=== PATIENT | female | born 1985 | race Caucasian/White ===

== ENCOUNTER 2021-01-18 14:42 | Outpatient (REF) | payer OTHER, SELFPAY ==
[2021-01-18 15:03] LABS: HCT 44.9 % (36.0-46.0); HGB 15.1 g/dL (11.2-15.7); MCH 30.6 pg (27.0-33.0); MCHC 33.6 % (32.0-36.0); MCV 91.1 fL (80-95); MPV 9.5 fL (8.0-11.0); Platelet Count 394 10^3/uL (130-400); RBC 4.93 10^6/uL (3.93-5.22); RDW 11.9 % (11.7-14.6); WBC 10.59 10^3/uL (4.4-10.8)
[2021-01-18 15:20] LABS: HCG Quant, Pregnancy 10 mIU/mL (1-3)
== END 2021-01-18 14:43 | disposition home or self-care (01) ==
LOC: NCHCN 14:42
PROVIDERS: PCP Nurse Practitioner Family; Visit Provider Nurse Practitioner Family
DX: N93.9 Abnormal uterine and vaginal bleeding, unspecified (principal)
CPT/HCPCS: 85027; 84702

== ENCOUNTER 2021-11-01 14:30 | Emergency (ER) | payer OTHER, MEDICAID, SELFPAY ==
[2021-11-01 14:33] VITALS: BP 135/96; PULSE 87; RESP 16; TEMP 37.3; O2SAT 97
--- NOTE | 2021-11-01 14:45 | DI.RAD_ITS ---
Exam(s) XR FOOT LT COMPLETE EXAM: XR FOOT LT COMPLETE CLINICAL HISTORY: PAIN 2ND MTP. TECHNIQUE: 2D digital imaging was performed. COMPARISON: No exams were available for comparison FINDINGS: Three views of the left foot reveal no evidence of fracture or diastasis of the Mary Alice nathan joint. No pes planus. Bone density normal. No osseous lesions. No radiopaque foreign body. IMPRESSION: No significant findings. DATA REPOSITORY: RADIATION DOSE DELIVERED:
--- NOTE | 2021-11-01 15:23 | DI.VRAD_ITS ---
PROCEDURE INFORMATION: Exam: XR Left Foot Exam date and time: 11/01/2021 2:49 PM Age: 36 years old Clinical indication: Other: Pain 2nd mtp TECHNIQUE: Imaging protocol: XR Left foot. Views: 3 or more views. COMPARISON: No relevant prior studies available. FINDINGS: Bones/joints: Normal. Soft tissues: Normal. IMPRESSION: No evidence for acute abnormality. Dictated and Authenticated by: Annalise Headley MD. Ordering:PREET Clinton MD
--- NOTE | 2021-11-01 15:31 | W.ED.GENAD ---
Discharge Plan Disposition Patient Disposition: HOME Condition: Stable Discharge Details Clinical Impression: Acute foot pain Primary Care Provider: Ariela Keenan ED Provider: Mary Beth Suárez Home Meds and New Rx's Prescriptions: Continued montelukast [Singulair] 10 mg Tablet 10 mg PO DAILY 0RF albuterol sulfate 90 mcg/actuation Hfa Aerosol Inhaler 2 puff INHALATION 6XD 0RF Discharge Instructions Instructions: Leg Pain (ED) Additional Instructions: Please follow-up with quantitative analyst developer Take ibuprofen and Tylenol as needed for pain control To return earlier should you have new or worsening complaints Your x-ray today did not show evidence of abnormality One of the differentials IS Osuna's neuroma, you may ask the quantitative analyst developer about thIS POSSIBILITY Referrals: Rock Baca DPM [[facility] STAFF PHYSICIAN] - Discharge Data Discharge Date/Time-TO BE ENTERED AT DEPARTURE: 11/01/21 15:43 Medical Decision Making X-ray does not show acute abnormality per virtual radiology interpretation in my review Placed in a boot for comfort and referred to podiatry in the outpatient setting Return discussed and patient expressed understanding Medical Records Medical records reviewed: Yes I reviewed the patient's medical records. HPI General Date/Time Provider Initiated Documentation: 11/01/21 14:48. HPI Narrative: This 36-year-old female presents with left foot pain. She states that the dog stepped on her foot approximately. Counter pain has worsened since that time. Is a prior injury. She states the pain is exacerbated with walking. Denies any additional complaints at this time. She had a prior injury. Related Data Home Medications Medication Instructions Recorded Confirmed albuterol sulfate 90 mcg/actuation 2 puff INHALATION 6XD 11/01/21 11/01/21 aerosol inhaler montelukast 10 mg tablet 10 mg PO DAILY 11/01/21 11/01/21 (Singulair) Allergies Allergy/AdvReac Type Severity Reaction Status Date / Time No Known Allergies Allergy Unverified 11/01/21 14:37 General Stated Complaint: Orthopedic JACOB: 4 Review of Systems Narrative: Review of systems obtained x3 and negative aside from indication in HPI PFSH All Active Problems (Updated 11/01/21 @ 15:35 by YANG Smith) Acute foot pain (Acute) Social History Smoking/Tobacco Use Status: Never Smoking risk assessment performed?: Yes Alcohol Intake: never Drug use: Never Substance use type: does not use Do you feel safe at home: Yes Do you feel safe in your relationship?: Yes Exam Extrem Other: Left foot with tenderness on plantar aspect MTP joint migraine second and fourth digit No visible sign of trauma, neurovascularly intact, no tenderness Course Vital Signs Vital signs: Vital Signs Temperature 37.3 C 11/01/21 14:33 Pulse 87 11/01/21 14:33 Respiratory Rate 16 11/01/21 14:33 Blood Pressure 135/96 H 11/01/21 14:33 Pulse Oximetry 97 11/01/21 14:33 Temperature 37.3 C 11/01/21 14:33 Temperature Source Temporal Artery Scan 11/01/21 14:33 Pulse 87 11/01/21 14:33 Respiratory Rate 16 11/01/21 14:33 Respiratory Effort Non-Labored 11/01/21 14:39 Blood Pressure 135/96 H 11/01/21 14:33 Blood Pressure Position Sitting 11/01/21 14:33 Pulse Oximetry 97 11/01/21 14:33 Oxygen Delivery Method Room Air 11/01/21 14:33 Oxygen Flow Rate 0 11/01/21 14:33 Pain Level 5 11/01/21 14:33 Lab/Test Results Lab/Test Results: POC- Test(urine) Negative
== END 2021-11-01 15:43 | disposition home or self-care (01) ==
PROVIDERS: Emergency Provider Physician Assistant; PCP Nurse Practitioner Family
DX: M79.672 Pain in left foot (principal); W54.8XXA Other contact with dog, initial encounter
CPT/HCPCS: 29515; 81025; 99283; 73630

== ENCOUNTER 2022-09-28 03:24 | Outpatient (CLI) | payer MEDICAID, SELFPAY ==
[2022-09-28 15:29] LABS: Abs Immature Grans 0.02 10^3/uL (0.0-0.06); Absolute Basophil Count 0.14 10^3/uL (0.0-0.2); Absolute Eosinophil Count 0.87 10^3/uL (0.0-0.7); Absolute Lymphocyte Count 2.76 10^3/uL (1.2-3.4); Absolute Monocyte Count 0.54 10^3/uL (0.1-0.8); Absolute Neutrophil Count 5.58 10^3/uL (1.2-6.7); Basophils % 1.4; Eosinophils % 8.8; HCT 41.2 % (36.0-46.0); HGB 13.4 g/dL (11.2-15.7); Immature Grans % 0.2; Lymphocytes % 27.9; MCH 29.8 pg (27.0-33.0); MCHC 32.5 % (32.0-36.0); MCV 92 fL (80-95); MPV 8.9 fL (8.0-11.0); Monocytes % 5.4; Neutrophils % 56.3; Platelet Count 320 10^3/uL (130-400); RBC 4.49 10^6/uL (3.93-5.22); RDW 11.9 % (11.7-14.6); RDW-SD 39.8 fL; WBC 9.91 10^3/uL (4.4-10.8)
[2022-09-30 08:34] LABS: IgE 2 IU/mL (<158)
== END 2022-09-28 03:25 | disposition home or self-care (01) ==
PROVIDERS: Visit Provider Internal Medicine Pulmonary Disease
DX: J45.909 Unspecified asthma, uncomplicated (principal)
CPT/HCPCS: 36415; 82785; 85025

== ENCOUNTER 2022-10-06 08:00 | Emergency (ER) | payer MEDICAID, SELFPAY ==
[2022-10-06 08:06] VITALS: BP 142/99; PULSE 107; RESP 18; TEMP 36.9; O2SAT 97
--- OUTSIDE RECORDS SUMMARY | 2022-10-06 08:07 | XMS_ITS | Continuity of Care Document ---
Author Name Unknown Organization [facility] Address [address] [place] [address] Encounter [facility]TT[facility] FIN [id number] [id number] Date(s): 06/11/22 - 06/11/22 [facility] [address], [place] [address] Encounter Diagnosis Asthma exacerbation(Discharge Diagnosis) - 06/11/22 Upper respiratory infection with cough and congestion(Discharge Diagnosis) - 06/11/22 Discharge Disposition: Home or Self Care Attending Physician: Casimiro Isaac MD Admitting Physician: Casimiro Isaac MD Allergies, Adverse Reactions, Alerts No Known Allergies Assessment and Plan Future Appointments Functional Status 06/11/22 Recent Travel History No recent travel Other exposure to Infectious Disease COV ID-19 Symptoms Present Medications albuterol 0 Refill(s) Start Date: 06/11/22 Status: Ordered predniSONE 20 mg oral tablet 40 mg = 2 tab, Oral, Daily, # 10 tab, 0 Refill(s), Pharmacy: [email or web address], 158, cm, 06/11/22 8:40:00 EDT, Height/Length Dosing, 65, kg, 06/11/22 8:40:00 EDT, Weight Dosing Start Date: 06/11/22 Stop Date: 06/16/22 Status: Ordered Singulair 0 Refill(s) Start Date: 06/11/22 Status: Ordered Results Laboratory List Name Date SARS-CoV-2 (Covid-19) AG ([facility]) POCT Most recent to oldest [Reference Range]: 1 SARS-CoV or CoV-2 (COVID-19) Ag ([facility]) [Negative] Negative (06/11/22 9:28 AM) 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 Unknown *NA* (06/11/22 9:28 AM) Date of onset (Lab) Unknown *NA* (06/11/22 9:28 AM) Hospitalized due to COVID-19? Unknown *NA* (06/11/22 9:28 AM) In ICU? Unknown *NA* (06/11/22 9:28 AM) Group care resident? Unknown *NA* (06/11/22 9:28 AM) status? Unknown *NA* (06/11/22 9:28 AM) Radiology Reports * Exam Date Time Procedure Performing Provider Status 06/11/22 9:21 AM XR Chest 2 Views Maryam Zhu; Auth (Verified) Notes: (XR Chest 2 Views) Reason For Exam: cough XR Chest 2 Views EXAM DESCRIPTION: XR Chest 2 Views 06/11/2022 INDICATION: COUGH TECHNIQUE: PA and lateral views of the chest. COMPARISON: 05/09/2021 FINDINGS: The lungs are well expanded and clear with no focal consolidation or pulmonary edema. The cardiomediastinal contour and pleural margins are within normal limits. IMPRESSION: No active chest disease. JOB #: [id number] Final Signed by: Héctor Roberson MD Signed (Electronic Signature): 06/11/2022 9:37 am Vital Signs Most recent to oldest [Reference Range]: 1 2 Temperature Temporal Artery [36-38 Deg C ] 36.7 Deg C (06/11/22 8:24 AM) Apical Heart Rate [60-100 bpm] 90 bpm (06/11/22 10:24 AM) Peripheral Pulse Rate [60-100 bpm] 93 bp m (06/11/22 8:24 AM) Respiratory Rate [12-24 br/min] 16 br/mi n (06/11/22 10:24 AM) 18 br/min (06/11/22 8:24 AM) Blood Pressure [90-140/60-90 mmHg] 138/9 1mmHg (06/11/22 8:24 AM) Weight Dosing 65.00 kg (06/11/22 8:40 AM) Weight Estimated 65.00 kg (06/11/22 8:24 AM) Height/Length Dosing 158.000 cm (06/11/22 8:40 AM) Height/Length Estimated 158.000 cm (06/11/22 8:24 AM) Social History Social History Type Response Tobacco Never tobacco user T obacco Use:. Sex XR Chest 2 Views * Héctor Roberson MD: VERIFY, VERIFY Event Display: Report EXAM DESCRIPTION: XR Chest 2 Views 06/11/2022 INDICATION: COUGH TECHNIQUE: PA and lateral views of the chest. COMPARISON: 05/09/2021 FINDINGS: The lungs are well expanded and clear with no focal consolidation or pulmonary edema. The cardiomediastinal contour and pleural margins are within normal limits. IMPRESSION: No active chest disease. JOB #: [id number] Final Signed by: Héctor Roberson MD Signed (Electronic Signature): 06/11/2022 9:37 am
--- OUTSIDE RECORDS SUMMARY | 2022-10-06 08:07 | XMS_ITS | Continuity of Care Document ---
Author Name Unknown Organization [facility] Address [address] [place] [address] Care Team Providers Care Letterpress Setter Name Role Phone Saundra De Paz MD Primary Care Physician [phone] Encounter [facility]_[place] FIN [id number] [id number] Date(s): 08/19/22 - 08/19/[address] [address]- Discharge Disposition: Home or Self Care Attending Physician: FITZ KERR Admitting Physician: FITZ KERR Referring Physician: JUAN MIMS Allergies, Adverse Reactions, Alerts No Known Allergies Medications albuterol 0 Refill(s) Start Date: 06/11/22 Status: Ordered Albuterol (Eqv-ProAir HFA) 90 mcg/inh inhalation aerosol 2 puffs, Inhale, every 6 hr, PRN cough, # 8.5 g, 0 Refill(s), Pharmacy: [facility], 157, cm, 06/25/22 8:40:00 EDT, Height/Length Dosing, 65.77, kg, 06/25/22 8:40:00 EDT, Weight Dosing Start Date: 06/25/22 Status: Ordered Flonase 50 mcg/inh nasal spray 1 sprays, Nasal, BID, # 9.9 mL, 0 Refill(s), Pharmacy: [facility], 157, cm, 06/25/22 8:40:00 EDT, Height/Length Dosing, 65.77, kg, 06/25/22 8:40:00 EDT, Weight Dosing Start Date: 06/25/22 Status: Ordered NuvaRing 0 Refill(s) Start Date: 06/25/22 Status: Ordered predniSONE 10 mg oral tablet See Instructions, 4 tabs for 3 days, 3 tabs for 3 days, 2 tabs for 3 days, 1 tab for 3 days. Stop, # 30 tab, 0 Refill(s), Pharmacy: [facility], 157, cm, 06/25/22 8:40:00 EDT, Height/Length Dosing, 65.77, kg, 06/25/22 8:40:00 EDT, Weight Dosing Start Date: 06/25/22 Status: Ordered Singulair 0 Refill(s) Start Date: 06/11/22 Status: Ordered Social History Social History Type Response Tobacco Never tobacco user T obacco Use:. Sex Patient Care team information Personnel Name: Saundra De Paz MD Address: Address: [address] [place] [address]
--- OUTSIDE RECORDS SUMMARY | 2022-10-06 08:07 | XMS_ITS | Continuity of Care Document ---
Author Name Unknown Organization [facility] Address [address] [place] [address] Care Team Providers Care Delivery Associate Name Role Phone Saundra De Paz MD Primary Care Physician [phone] Encounter [facility] NBR [id number] Date(s): 08/04/22 - 08/04/22 [facility] [address] [place] [address]- Encounter Diagnosis Asthma(Discharge Diagnosis) - 08/05/22 Discharge Disposition: Home or Self Care Attending Physician: Saundra De Paz MD Allergies, Adverse Reactions, Alerts No Known Allergies Assessment and Plan Future Appointments Functional Status 08/04/22 Other exposure to Infectious Disease Non e Medications albuterol 0 Refill(s) Start Date: 06/11/22 Status: Ordered Albuterol (Eqv-ProAir HFA) 90 mcg/inh inhalation aerosol 2 puffs, Inhale, every 6 hr, PRN cough, # 8.5 g, 0 Refill(s), Pharmacy: [facility], 157, cm, 06/25/22 8:40:00 EDT, Height/Length Dosing, 65.77, kg, 06/25/22 8:40:00 EDT, Weight Dosing Start Date: 06/25/22 Status: Ordered Flonase 50 mcg/inh nasal spray 1 sprays, Nasal, BID, # 9.9 mL, 0 Refill(s), Pharmacy: [facility], 157, cm, 06/25/22 8:40:00 EDT, Height/Length Dosing, 65.77, kg, 06/25/22 8:40:00 EDT, Weight Dosing Start Date: 06/25/22 Status: Ordered NuvaRing 0 Refill(s) Start Date: 06/25/22 Status: Ordered predniSONE 10 mg oral tablet See Instructions, 4 tabs for 3 days, 3 tabs for 3 days, 2 tabs for 3 days, 1 tab for 3 days. Stop, # 30 tab, 0 Refill(s), Pharmacy: [facility], 157, cm, 06/25/22 8:40:00 EDT, Height/Length Dosing, 65.77, kg, 06/25/22 8:40:00 EDT, Weight Dosing Start Date: 06/25/22 Status: Ordered Singulair 0 Refill(s) Start Date: 06/11/22 Status: Ordered Vital Signs Most recent to oldest [Reference Range]: 1 Temperature Tympanic [36.6-37.9 Deg C] 3 6.1 Deg C *LOW* (08/04/22 4:16 PM) Peripheral Pulse Rate [60-100 bpm] 99 bp m (08/04/22 4:16 PM) Blood Pressure [90-140/60-90 mmHg] 130/9 2mmHg (08/04/22 4:16 PM) Weight 67.5 kg (08/04/22 4:16 PM) Weight Measured (lbs) 148.812 lb (08/04/22 4:16 PM) Social History Social History Type Response Tobacco Never tobacco user T obacco Use:. Sex Physician Outpatient Note * Werner Earl, DO: PERFORM Event Display: Office Clinic Note Physician Authored Date: [id number] ALICIA SALINAS :1985 Age:37 years Sex:Female Visit Date:08/04/2022 Primary Care Physician: Saundra De Paz MD Chief Complaint Pt reports that she has been doing ok. She is stressed due to work. Pt needs a work note for the asthma History of Present Illness 37 y/o female following up for 2 ER visits for exacerbation of her asthma. Her breathing is better but sensitive to smells that make her short of breath. She would like a referral to a creative lead as well as an director enterprise sales. She needs a letter for work because she has missed so many days. She does not check he peak flows. Review of Systems Constitutional: No fevers, chills, sweats Eye: No recent visual problems ENT: No ear pain, nasal congestion, sore throat Respiratory: No shortness of breath, cough Cardiovascular: No Chest pain, palpitations, syncope Integumentary: No rash, pruritus, abrasions Neurologic: Alert & oriented X 4 Psychiatric: No anxiety, depression Physical Exam Vitals & Measurements T:??36.1?C ??(Tympanic)?? HR:??99??(Peripheral)?? BP:??130/92?? SpO2:??98%?? WT:??67.5??kg?? General: Alert and oriented, well nourished, no acute distress. Lungs: Clear to auscultation and percussion, non-labored respiration. Heart: Normal rate, regular rhythm, no murmur, gallop or edema. Skin: Skin is warm, dry and appropriate for ethnicity, no rashes or lesions. Neurologic: Awake, alert and oriented X4, CN II-XII intact. Psychiatric: Cooperative, appropriate mood and affect. ? Assessment/Plan Asthma??J45.909 1. Asthma ? Letter for work ? Refer to [employer] ? Refer to Line Walker ? Given peak flow meter and advised to know what her normal values are ? Taught pt to do diaphragmatic doming Follow up PRN ?? Pt agrees with plan ? Problem List/Past Medical History Ongoing No qualifying data Historical No qualifying data Medications albuterol Albuterol (Eqv-ProAir HFA) 90 mcg/inh inhalation aerosol, 2 puffs, Inhale, every 6 hr, PRN Flonase 50 mcg/inh nasal spray, 1 sprays, Nasal, BID NuvaRing predniSONE 10 mg oral tablet, See Instructions Singulair Allergies No Known Allergies No Known Medication Allergies Social History Electronic Cigarette/Vaping Electronic Cigarette Use: Never. Tobacco Never tobacco user Tobacco Use:. Electronically Signed on 08/05/22 06:02 AM Wenrer Brazalovich, DO Patient Care team information Personnel Name: Saundra De Paz MD Address: Address: [address] [place] [id number]
--- OUTSIDE RECORDS SUMMARY | 2022-10-06 08:07 | XMS_ITS | Continuity of Care Document ---
Author Name Unknown Organization [facility] Address [address] [place] [address] Encounter [facility] FIN NBR [id number] Date(s): 06/25/22 - 06/25/22 [facility] [address], [place] [address] Encounter Diagnosis Asthma exacerbation(Discharge Diagnosis) - 06/25/22 Chronic rhinitis(Discharge Diagnosis) - 06/25/22 Viral URI(Discharge Diagnosis) - 06/25/22 Discharge Disposition: Home or Self Care Attending Physician: Rodo Bernal MD Admitting Physician: Rodo Bernal MD Allergies, Adverse Reactions, Alerts No Known Medication Allergies Assessment and Plan Future Appointments Diagnostic Tests Pending * Strep Confirmation 06/25/22 Functional Status 06/25/22 Other exposure to Infectious Disease COV ID-19 Symptoms Present Medications albuterol 0 Refill(s) Start Date: 06/11/22 Status: Ordered Albuterol (Eqv-ProAir HFA) 90 mcg/inh inhalation aerosol 2 puffs, Inhale, every 6 hr, PRN cough, # 8.5 g, 0 Refill(s), Pharmacy: [id number], 157, cm, 06/25/22 8:40:00 EDT, Height/Length Dosing, 65.77, kg, 06/25/22 8:40:00 EDT, Weight Dosing Start Date: 06/25/22 Status: Ordered Flonase 50 mcg/inh nasal spray 1 sprays, Nasal, BID, # 9.9 mL, 0 Refill(s), Pharmacy: [facility], 157, cm, 06/25/22 8:40:00 EDT, Height/Length Dosing, 65.77, kg, 06/25/22 8:40:00 EDT, Weight Dosing Start Date: 06/25/22 Status: Ordered NuvaRing 0 Refill(s) Start Date: 06/25/22 Status: Ordered predniSONE 10 mg oral tablet See Instructions, 4 tabs for 3 days, 3 tabs for 3 days, 2 tabs for 3 days, 1 tab for 3 days. Stop, # 30 tab, 0 Refill(s), Pharmacy: [id number], 157, cm, 06/25/22 8:40:00 EDT, Height/Length Dosing, 65.77, kg, 06/25/22 8:40:00 EDT, Weight Dosing Start Date: 06/25/22 Status: Ordered Singulair 0 Refill(s) Start Date: 06/11/22 Status: Ordered Mental Status 06/25/22 Eye Opening Response Anne Spontaneous ly Best Verbal Response Anne Oriented Best Motor Response Anne Obeys comman ds Anne Coma Score 15 Results Laboratory List Name Date Strep A Screen 06/25/22 SARS-CoV-2 (Covid-19) AG ([facility]) POCT Most recent to oldest [Reference Range]: 1 Streptococcus A [Negative] Negative (06/25/22 9:15 AM) SARS-CoV or CoV-2 (COVID-19) Ag ([facility]) [Negative] Negative (06/25/22 8:28 AM) Employed in healthcare? Unknown *NA* (06/25/22 8:28 AM) Symptomatic as defined by CDC? Unknown *NA* (06/25/22 8:28 AM) Date of onset (Lab) Unknown *NA* (06/25/22 8:28 AM) Hospitalized due to COVID-19? Unknown *NA* (06/25/22 8:28 AM) In ICU? Unknown *NA* (06/25/22 8:28 AM) Group care resident? Unknown *NA* (06/25/22 8:28 AM) status? Unknown *NA* (06/25/22 8:28 AM) Vital Signs Most recent to oldest [Reference Range]: 1 Temperature Temporal Artery [36-38 Deg C ] 36.6 Deg C (06/25/22 8:21 AM) Peripheral Pulse Rate [60-100 bpm] 99 bp m (06/25/22 8:21 AM) Respiratory Rate [12-24 br/min] 20 br/mi n (06/25/22 8:21 AM) Blood Pressure [90-140/60-90 mmHg] 155/9 8mmHg *HI* (06/25/22 8:21 AM) Weight Dosing 65.77 kg (06/25/22 8:40 AM) Weight Estimated 65.77 kg (06/25/22 8:21 AM) Height/Length Dosing 157.000 cm (06/25/22 8:40 AM) Height/Length Estimated 157.000 cm (06/25/22 8:21 AM) Social History Social History Type Response Tobacco Never tobacco user T obacco Use:. Sex Hospital Discharge Instructions Patient Education 06/25/2022 09:25:47 Allergic Rhinitis, Adult Allergic Rhinitis, Adult Allergic rhinitis is an allergic reaction that affects the mucous membrane inside the nose. The mucous membrane is the tissue that produces mucus. There are two types of allergic rhinitis: ??? Seasonal. This type is also called hay fever and happens only during certain seasons. ??? Perennial. This type can happen at any time of the year. Allergic rhinitis cannot be spread from person to person. This condition can be mild, moderate, or severe. It can develop at any age and may be outgrown. What are the causes? This condition is caused by allergens. These are things that can cause an allergic reaction. Allergens may differ for seasonal allergic rhinitis and perennial allergic rhinitis. ??? Seasonal allergic rhinitis is triggered by pollen. Pollen can come from grasses, trees, and weeds. ??? Perennial allergic rhinitis may be triggered by: ??? Dust mites. ??? Proteins in a pet's urine, saliva, or dander. Dander is skin cells from a pet. ??? Smoke, mold, or car fumes. What increases the risk? You are more likely to develop this condition if you have a family history of allergies or other conditions related to allergies, including: ??? Allergic conjunctivitis. This is inflammation of parts of the eyes and eyelids. ??? Asthma. This condition affects the lungs and makes it hard to breathe. ??? Atopic dermatitis or eczema. This is fci (chronic) inflammation of the skin. ??? Food allergies. What are the signs or symptoms? Symptoms of this condition include: ??? Sneezing or coughing. ??? A stuffy nose (nasal congestion), itchy nose, or nasal discharge. ??? Itchy eyes and tearing of the eyes. ??? A feeling of mucus dripping down the back of your throat (postnasal drip). ??? Trouble sleeping. ??? Tiredness or fatigue. ??? Headache. ??? Sore throat. How is this diagnosed? This condition may be diagnosed with your symptoms, medical history, and physical exam. Your healthcare provider may check for related conditions, such as: ??? Asthma. ??? Kathryn eye. This is eye inflammation caused by infection (conjunctivitis). ??? Ear infection. ??? Upper respiratory infection. This is an infection in the nose, throat, or upper airways. You may also have tests to find out which allergens trigger your symptoms. These may include skin tests or blood tests. How is this treated? There is no cure for this condition, but treatment can help control symptoms. Treatment may include: ??? Taking medicines that block allergy symptoms, such as corticosteroids and antihistamines. Medicine may be given as a shot, nasal spray, or pill. ??? Avoiding any allergens. ??? Being exposed again and again to tiny amounts of allergens to help you build a defense against allergens (immunotherapy). This is done if other treatments have not helped. It may include: ??? Allergy shots. These are injected medicines that have small amounts of allergen in them. ??? Sublingual immunotherapy. This involves taking small doses of a medicine with allergen in it under your tongue. If these treatments do not work, your health care provider may prescribe newer, stronger medicines. Follow these instructions at home: Avoiding allergens Find out what you are allergic to and avoid those allergens. These are some things you can do to help avoid allergens: ??? If you have perennial allergies: ??? Replace carpet with wood, tile, or vinyl candie. Carpet can trap dander and dust. ??? Do not smoke. Do not allow smoking in your home. ??? Change your heating and air conditioning filters at least once a month. ??? If you have seasonal allergies, take these steps during allergy season: ??? Keep windows closed as much as possible. ??? Plan outdoor activities when pollen counts are lowest. Check pollen counts before you plan outdoor activities. ??? When coming indoors, change clothing and shower before sitting on furniture or bedding. ??? If you have a pet in the house that produces allergens: ??? Keep the pet out of the bedroom. ??? Vacuum, sweep, and dust regularly. General instructions ??? Take xsef-tmv-detzpct and prescription medicines only as told by your health care provider. ??? Drink enough fluid to keep your urine pale yellow. ??? Keep all follow-up visits as told by your health care provider. This is important. Where to find more information ? ? [employer] [employer]: www.aaaai.org Contact a health care provider if: ??? You have a fever. ??? You develop a cough that does not go away. ??? You make whistling sounds when you breathe (wheeze). ??? Your symptoms slow you down or stop you from doing your normal activities each day. Get help right away if: ??? You have shortness of breath. This symptom may represent a serious problem that is an emergency. Do not wait to see if the symptom will go away. Get medical help right away. Call your local emergency services (911 in the [place] Do not drive yourself to the hospital. Summary ??? Allergic rhinitis may be managed by taking medicines as directed and avoiding allergens. ??? If you have seasonal allergies, keep windows closed as much as possible during allergy season. ??? Contact your health care provider if you develop a fever or a cough that does not go away. This information is not intended to replace advice given to you by your health care provider. Make sure you discuss any questions you have with your health care provider. Document Revised: 09/27/2020 Document Reviewed: 08/06/2020 [employer] Patient Education ?? 2021 [employer]. 06/25/2022 09:25:15 Asthma, Adult Asthma, Adult Asthma is a long-term (chronic) condition that causes recurrent episodes in which the airways become tight and narrow. The airways are the passages that lead from the nose and mouth down into the lungs. Asthma episodes, also called asthma attacks, can cause coughing, wheezing, shortness of breath, and chest pain. The airways can also fill with mucus. During an attack, it can be difficult to breathe. Asthma attacks can range from minor to life threatening. Asthma cannot be cured, but medicines and lifestyle changes can help control it and treat acute attacks. What are the causes? This condition is believed to be caused by inherited (genetic) and environmental factors, but its exact cause is not known. There are many things that can bring on an asthma attack or make asthma symptoms worse (triggers). Asthma triggers are different for each person. Common triggers include: ??? Mold. ??? Dust. ??? Cigarette smoke. ??? Cockroaches. ??? Things that can cause allergy symptoms (allergens), such as animal dander or pollen from trees or grass. ??? Air pollutants such as household supervisor rides, wood smoke, smog, or chemical odors. ??? Cold air, weather changes, and winds (which increase molds and pollen in the air). ??? Strong emotional expressions such as crying or laughing hard. ??? Stress. ??? Certain medicines (such as aspirin) or types of medicines (such as beta-blockers). ??? Sulfites in foods and drinks. Foods and drinks that may contain sulfites include dried fruit, potato chips, and sparkling grape juice. ??? Infections or inflammatory conditions such as the flu, a cold, or inflammation of the nasal membranes (rhinitis). ??? Gastroesophageal reflux disease (GERD). ??? Exercise or strenuous activity. What are the signs or symptoms? Symptoms of this condition may occur right after asthma is triggered or many hours later. Symptoms include: ??? Wheezing. This can sound like whistling when you breathe. ??? Excessive nighttime or early interventionist coughing. ??? Frequent or severe coughing with a common cold. ??? Chest tightness. ??? Shortness of breath. ??? Tiredness (fatigue) with minimal activity. How is this diagnosed? This condition is diagnosed based on: ??? Your medical history. ??? A physical exam. ??? Tests, which may include: ??? Lung function studies and pulmonary studies (spirometry). These tests can evaluate the flow of air in your lungs. ??? Allergy tests. ??? Imaging tests, such as X-rays. How is this treated? There is no cure for this condition, but treatment can help control your symptoms. Treatment for asthma usually involves: ??? Identifying and avoiding your asthma triggers. ??? Using medicines to control your symptoms. Generally, two types of medicines are used to treat asthma: ??? Controller medicines. These help prevent asthma symptoms from occurring. They are usually takenevery day. ??? Fast-acting reliever or rescue medicines. These quickly relieve asthma symptoms by widening thenarrow and tight airways. They are used as needed and provide short-term relief. ??? Using supplemental oxygen. This may be needed during a severe episode. ??? Using other medicines, such as: ??? Allergy medicines, such as antihistamines, if your asthma attacks are triggered by allergens. ??? Immune medicines (immunomodulators). These are medicines that help control the immune system. ??? Creating an asthma action plan. An asthma action plan is a written plan for managing and treating your asthma attacks. This plan includes: ??? A list of your asthma triggers and how to avoid them. ??? Information about when medicines should be taken and when their dosage should be changed. ??? Instructions about using a device called a peak flow meter. A peak flow meter measures how wellthe lungs are working and the severity of your asthma. It helps you monitor your condition. Follow these instructions at home: Controlling your home environment Control your home environment in the following ways to help avoid triggers and prevent asthma attacks: ??? Change your heating and air conditioning filter regularly. ??? Limit your use of fireplaces and wood stoves. ??? Get rid of pests (such as roaches and mice) and their droppings. ??? Throw away plants if you see mold on them. ??? Clean floors and dust surfaces regularly. Use unscented cleaning products. ??? Try to have someone else vacuum for you regularly. Stay out of rooms while they are being vacuumed and for a short while afterward. If you vacuum, use a dust mask from a hardware store, a double-layered or microfilter vacuum cleaner furniture bag, or a vacuum cleaner furniture with a HEPA filter. ??? Replace carpet with wood, tile, or vinyl candie. Carpet can trap dander and dust. ??? Use allergy-proof pillows, mattress covers, and box spring covers. ??? Keep your bedroom a trigger-free room. ??? Avoid pets and keep windows closed when allergens are in the air. ??? Wash beddings every week in hot water and dry them in a dryer. ??? Use blankets that are made of polyester or cotton. ??? Clean bathrooms and elo with bleach. If possible, have someone repaint the mohamud in these rooms with mold-resistant paint. Stay out of the rooms that are being cleaned and painted. ??? Wash your hands often with soap and water. If soap and water are not available, use hand slot machine mechanic. ??? Do not allow anyone to smoke in your home. General instructions ??? Take cgev-dhl-evphvky and prescription medicines only as told by your health care provider. ??? Speak with your health care provider if you have questions about how or when to take the medicines. ??? Make note if you are requiring more frequent dosages. ??? Do not use any products that contain nicotine or tobacco, such as cigarettes and e-cigarettes. If you need help quitting, ask your health care provider. Also, avoid being exposed to secondhand smoke. ??? Use a peak flow meter as told by your health care provider. Record and keep track of the readings. ??? Understand and use the asthma action plan to help minimize, or stop an asthma attack, without needing to seek medical care. ??? Make sure you stay up to date on your yearly vaccinations as told by your health care provider.This may include vaccines for the flu and pneumonia. ??? Avoid outdoor activities when allergen counts are high and when air quality is low. ??? Wear a ski mask that covers your nose and mouth during outdoor winter activities. Exercise indoors on cold days if you can. ??? Warm up before exercising, and take time for a cool-down period after exercise. ??? Keep all follow-up visits as told by your health care provider. This is important. Where to find more information ??? For information about asthma, turn to the Centers for Disease Control and Prevention at www.cdc.gov/asthma/faqs ??? For air quality information, turn to [employer] at airnow.gov Contact a health care provider if: ??? You have wheezing, shortness of breath, or a cough even while you are taking medicine to prevent attacks. ??? The mucus you cough up (sputum) is thicker than usual. ??? Your sputum changes from clear or white to yellow, green, massey, or bloody. ??? Your medicines are causing side effects, such as a rash, itching, swelling, or trouble breathing. ??? You need to use a reliever medicine more than 2???3 times a week. ??? Your peak flow reading is still at 50???79% of your personal best after following your action plan for 1 hour. ??? You have a fever. Get help right away if: ??? You are getting worse and do not respond to treatment during an asthma attack. ??? You are short of breath when at rest or when doing very little physical activity. ??? You have difficulty eating, drinking, or talking. ??? You have chest pain or tightness. ??? You develop a fast heartbeat or palpitations. ??? You have a bluish color to your lips or fingernails. ??? You are light-headed or dizzy, or you faint. ??? Your peak flow reading is less than 50% of your personal best. ??? You feel too tired to breathe normally. Summary ??? Asthma is a long-term (chronic) condition that causes recurrent episodes in which the airways become tight and narrow. These episodes can cause coughing, wheezing, shortness of breath, and chest pain. ??? Asthma cannot be cured, but medicines and lifestyle changes can help control it and treat acuteattacks. ??? Make sure you understand how to avoid triggers and how and when to use your medicines. ??? Asthma attacks can range from minor to life threatening. Get help right away if you have an asthma attack and do not respond to treatment with your usual rescue medicines. This information is not intended to replace advice given to you by your health care provider. Make sure you discuss any questions you have with your health care provider. Document Revised: 05/09/2021 Document Reviewed: 12/11/2020 [employer] Patient Education ?? 2021 [employer] 06/25/2022 09:25:03 Bronchospasm, Adult Bronchospasm, Adult Bronchospasm is a tightening of the smooth muscle that wraps around the small airways in the lungs.When the muscle tightens, the small airways narrow. Narrowed airways limit the air you breathe in or out of your lungs. Inflammation (swelling) and more mucus (sputum) than usual can further irritatethe airways. This can make it very hard to breathe. Bronchospasm can happen suddenly or over a period of time. What are the causes? Common causes of this condition include: ??? An infection, such as a cold or sinus drainage. ??? Exercise. ??? Strong odors from aerosol sprays, and fumes from perfume, candles, and household supervisor rides. ??? Cold air. ??? Stress or strong emotions such as crying or laughing. What increases the risk? The following factors may make you more likely to develop this condition: ??? Having asthma. ??? Smoking or being around someone who smokes (secondhand smoke). ??? Seasonal allergies, such as pollen or mold. ??? Allergic reaction (anaphylaxis) to food, medicine, or insect bites or stings. What are the signs or symptoms? Symptoms of this condition include: ??? Making a whistling sound when you breathe (wheezing). ??? Coughing. ??? Chest tightness. ??? Shortness of breath. ??? Decreased ability to exercise. ??? Noisy breathing or a high-pitched cough. How is this diagnosed? This condition may be diagnosed based on your medical history and a physical exam. Your health careprovider may also perform tests, including: ??? A chest X-ray. ??? Lung function tests. How is this treated? This condition may be treated by: ??? Using inhaled medicines. These open up (relax) the airways and help you breathe. They can be taken with a metered dose inhaler or a nebulizer device. ??? Taking corticosteroid medicines. These may be given to reduce inflammation and swelling. ??? Removing the irritant or trigger that started the bronchospasm. Follow these instructions at home: Medicines ??? Take pzpj-ded-alfpbhx and prescription medicines only as told by your health care provider. ??? If you need to use an inhaler or nebulizer to take your medicine, ask your health care providerhow to use it correctly. ??? You may be given a spacer to use with your inhaler. This makes it easier to get the medicine from the inhaler into your lungs. Lifestyle ??? Do not use any products that contain nicotine or tobacco, such as cigarettes, e-cigarettes, andchewing tobacco. If you need help quitting, ask your health care provider. ??? Keep track of things that trigger your bronchospasm. Avoid these if possible. ??? When pollen, air pollution, or humidity levels are bad, keep windows closed and use an air conditioner or go to places that have air conditioning. ??? Find ways to manage stress and your emotions, such as mindfulness, relaxation, or breathing exercises. Activity Some people have bronchospasm when they exercise. This is called exercise- induced bronchoconstriction (EIB). If you have this problem, talk with your health care provider about how to manage EIB. Some tips include: ??? Use your fast-acting inhaler before exercise. ??? Exercise indoors if it is very cold, humid, or if the pollen and mold counts are high. ??? Warm up and cool down before and after exercise. ??? Stop exercising right away if your symptoms start or get worse. General instructions ??? If you have asthma, make sure you have an asthma action plan. ??? Stay up to date on your immunizations. ??? Keep all follow-up visits as told by your health care provider. This is important. Get help right away if: ??? You have trouble breathing. ??? Your wheezing and coughing do not get better after taking your medicine. ??? You have chest pain. ??? You have trouble speaking more than one-word sentences. These symptoms may represent a serious problem that is an emergency. Do not wait to see if the symptoms will go away. Get medical help right away. Call your local emergency services (911 in the [place] Do not drive yourself to the hospital. Summary ??? Bronchospasm is a tightening of the smooth muscle that wraps around the small airways in the lungs. ??? Some people have bronchospasm when they exercise. This is called exercise- induced bronchoconstriction (EIB). If you have this problem, talk with your health care provider about how to manage EIB. ??? Do not use any products that contain nicotine or tobacco, such as cigarettes, e-cigarettes, andchewing tobacco. ??? Get help right away if your wheezing and coughing do not get better after taking your medicine. This information is not intended to replace advice given to you by your health care provider. Make sure you discuss any questions you have with your health care provider. Document Revised: 09/17/2020 Document Reviewed: 09/17/2020 [employer] Patient Education ?? 2021 [employer]
--- OUTSIDE RECORDS SUMMARY | 2022-10-06 08:09 | XMS_ITS ---
Author Name Austin Belloolas Address [address], [place] [id number] Organization [facility] Address [address], [place] [id number] Care Team Providers Care Urogynaecologist Name Role Phone Slava Bello Unavailable [phone] PROBLEMS Type Condition ICD9-CM Code LAG73-JB Code Onset Dates Condition Status SNOMED Code Problem Metrorrhagia N92.1 Active 80581394 Problem Moderate persistent asthma with exacerbation J45.41 Active [id number] Problem Cervical high risk HPV (human papillomavirus) test positive R87.810 Active 336057980 Problem Other chronic pain G89.29 Active 08629 001 Problem HAMMAD (stress urinary incontinence, female) N39.3 Active 65698433 Problem Gastroesophageal reflux disease, unspecified whether esophagitis present K21.9 Active 32696792 9 Problem Anxiety F41.9 Active 45072847 Problem Stress at home F43.9 Active 249361191 Problem JUSTYN (obstructive sleep apnea) G47.33 Active 34488961 Problem Moderate persistent asthma with acute exacerbation J45.41 Active ALLERGIES Substance Reaction Event Type Date Status seasonal Unknown Non Drug Allergy Mar, Active ENCOUNTERS Encounter Location Date Diagnosis [facility] [address] [place], [place] [id number] Mar, [facility] [address] [facility] [address] [place], [place] [id number] Mar, 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) (routine) w/o abn findings Z01.419 ; Cervical high risk HPV (human papillomavirus) test positive R87.810 ; IUD (intrauterine device) in place Z97.5 and Encounter for surveillance of vaginal ring hormonal contraceptive device Z30.44 [facility] [address] [facility] [address] [place], [place] [id number] 20 Nov, 2021 IUD (intrauterine device) in place Z97.5 ; Cervical high risk HPV (human papillomavirus) test positive R87.810 ; Encounter for surveillance of vaginal ring hormonal contraceptive device Z30.44 ; Metrorrhagia N92.1 and Need for HPV vaccination Z23 [facility] [address] [place], [place] [id number] 20 Nov, 2021 Anxiety F41.9 and JUSTYN (obstructive sleep apnea) G47.33 [facility] [address] [place] [address] 14 [place], [place] [id number] 24 Oct, 2021 Dysfunction of both eustachian tubes H69.83 [facility] [address] [place], [place] [id number] 18 Oct, 2021 [facility] [address] [address] [place], [place] [id number] 15 Oct, 2021 JUSTYN (obstructive sleep apnea) G47.33 ; Moderate persistent asthma with acute exacerbation J45.41 ; Metrorrhagia N92.1 ; Anxiety F41.9 ; Gastroesophageal reflux disease, unspecified whether esophagitis present K21.9 ; Other chronic pain G89.29 and Nasal congestion R09.81 [facility] [address] [id number] 07 Oct, [address] [id number] Sep, Moderate persistent asthma with exacerbation J45.41 ; Metrorrhagia N92.1 ; Screening for cardiovascular condition Z13.6 ; Screening for diabetes mellitus Z13.1 ; Screening for STD (sexually transmitted disease) Z11.3 ; JUSTYN (obstructive sleep apnea) G47.33 ; History of recurrent ear infection Z86.69 ; Stress at home F43.9 and Anxiety F41.[address] [id number] Aug, Moderate persistent asthma with acute exacerbation J45.41 [facility] [address] [place], [place] [id number] 28 Jul, [address] [id number] 27 Jul, 2021 Encounter for screening examination for sexually transmitted disease Z11.3 and Metrorrhagia N92.1 [facility] [address] [place], [place] [id number] 26 Jul, 2021 Moderate persistent asthma with exacerbation J45.41 and Acute non-recurrent maxillary sinusitis J01.[address] [id number] 14 Jul, [address] [id number] 14 Jul, 2021 Need for HPV vaccination Z23 [address] [id number] Jun, [address] [id number] May, Need for HPV vaccination Z23 [address] [id number] Mar, [address] [id number] Mar, IUD surveillance Z30.[address] [id number] Mar, [address] [id number] 12 Feb, 2021 Encounter for insertion of intrauterine contraceptive device Z30.430 ; General counseling and advice for contraceptive management Z30.09 ; Encounter for test with result negative Z32.02 ; Screening examination for infectious disease Z11.9 and Cervical cancer screening Z12.[address] [id number] 08 Feb, [address] [id number] Jan, Spontaneous miscarriage O03.9 and Counseling for control regarding intrauterine device (IUD) Z30.[address] [id number] December, IMMUNIZATIONS Vaccine Route Administration Date Status HPV Vaccine Gardasil 9 IM Intramuscular December 10, 2021 Administered HPV Vaccine Gardasil 9 IM Intramuscular Aug 05, 2021 A dministered HPV Vaccine Gardasil 9 IM Intramuscular May 27, 2021 A dministered SOCIAL HISTORY Qualifiers Date Never Smoker REASON FOR REFERRAL FUNCTIONAL STATUS PLAN OF CARE Activity Details VITAL SIGNS Height 62 in 2022-04-02 Height 62 in 2021-12-10 Height 62 in 2021-12-10 Height 62 in 2021-11-13 Height 62 in 2021-11-04 Height 62 in 2021-10-14 Height 62 in 2021-09-03 Height 62 in 2021-08-18 Height 62 in 2021-08-17 Height 62 in 2021-05-27 Height 62 in 2021-03-31 Height 62 in 2021-03-03 Height 62 in 2021-01-21 Weight 146.6 lbs 2022-04-02 Weight 150.0 lbs 2021-12-10 Weight 149.8 lbs 2021-12-10 Weight 147 lbs 2021-11-13 Weight 147 lbs 2021-11-04 Weight 147 lb 4 oz lbs 2021-10-14 Weight 147 lbs 2021-09-03 Weight 145.4 lbs 2021-08-18 Weight 145 lbs 2021-08-17 Weight 146.8 lbs 2021-05-27 Weight 144.8 lbs 2021-03-03 Weight 146.0 lbs 2021-01-21 Temperature 97.6 degrees Fahrenheit Heart Rate 86 /min 2021-12-10 Heart Rate 60 /min 2021-11-04 Heart Rate 86 /min 2021-10-14 Heart Rate 94 /min 2021-09-03 Heart Rate 91 /min 2021-08-17 Oximetry 98 2021-12-10 Oximetry 98 2021-11-04 Oximetry 98 2021-10-14 Oximetry 97 2021-09-03 Oximetry 99 2021-08-17 BMI 26.81 kg/m2 2022-04-02 BMI 27.43 kg/m2 2021-12-10 BMI 27.40 kg/m2 2021-12-10 BMI 26.88 kg/m2 2021-11-13 BMI 26.88 kg/m2 2021-11-04 BMI 26.93 kg/m2 2021-10-14 BMI 26.88 kg/m2 2021-09-03 BMI 26.59 kg/m2 2021-08-18 BMI 26.52 kg/m2 2021-08-17 BMI 26.85 kg/m2 2021-05-27 BMI 26.48 kg/m2 2021-03-03 BMI 26.70 kg/m2 2021-01-21 Blood pressure systolic 124 mm Hg Blood pressure diastolic 72 mm Hg 2022-03 MEDICATIONS Medication Instructions Dosage Frequency Start Date End Date Duration Status Singulair 10 MG Orally Once a day 1 tablet 24h 12 Aug, 2021 30 day(s) Active Fluticasone Propionate HFA 110 MCG/ACT Inhalation Twice a day 2 puffs 12h Aug, 30 days Active Mirena 20 MCG/24HR as directed Active Etonogestrel-Et hinyl Estradiol 0.12-0.015 MG/24HR Vaginal _insert for 24 days, remove for 4 days then _insert new ring 1 ring Jul, 28 day(s) Active ProAir HFA 108 (90 Base) MCG/ACT Inhalation every 4 hrs prn 1 puff as needed 30 days Not-Takin g Cetirizine HCl 10 MG Orally Once a day 1 tablet 24h 30 day(s) Active Albuterol Sulfate HFA 108 (90 Base) MCG/ACT Inhalation every 4 hrs 1 puff as needed 4h Jul, 7 days Active PROCEDURES Procedure Date Ordered Result Body Site LNG-RELEASING IUC SYS 52MG 5 YR DUR March 03, 2021 IMMUNIZATION ADMINISTRATION December 10, 2021 HPV Vaccine Gardasil 9 May 27, 2021 IMMUNIZATION ADMINISTRATION May 27, 2021 HPV Vaccine Gardasil 9 Aug 05, 2021 IMMUNIZATION ADMINISTRATION Aug 05, 2021 URINE TEST March 03, 2021 IUD INSERTION March 03, 2021 HPV Vaccine Gardasil December 10, 2021 RESULTS Name Result Date Reference Range Pap Lb, rfx HPV all pth 2022-04-02 . Note: . Clinical history: DIAGNOSIS: Specimen adequacy: Additional comment: Recommendation: Performed by: Electronically signed by: Test ordered: Maturation index: Amended report: Addendum: QC reviewed by: Cytology history: Special procedure: QA comment: Diagnosis provided by: Source: Pathologist provided ICD9: Clinician provided ICD9: Interpretation LBP CPT Code Automation Pap Lb, rfx HPV all pth 2021-12-10 . Note: . Clinical history: DIAGNOSIS: Specimen adequacy: Additional comment: Recommendation: Performed by: Electronically signed by: Test ordered: Maturation index: Amended report: Addendum: QC reviewed by: Cytology history: Special procedure: QA comment: Diagnosis provided by: Source: Pathologist provided ICD9: Clinician provided ICD9: Interpretation [facility] CPT Code Automation LIPID PROFILE 2021-10-23 CHOLESTEROL 192 129-209 TRIGLYCERIDES 52 10-150 HDL 51 40-80 LDL (CALCULATED) 131 RISK RATIO 3.8 RISK INTERP RISK MALE FEMALE 1/2 average 3.4 3.3 Average 5.0 4.4 2x Average 9.6 7.1 3x Average 23.4 11.0 HIV 1/0/2 ANTIBODIES 2021-10-23 HIV1/O/2 Abs,P24Ag NON-REACTIVE NON-REACT JUAN SYPHILIS 2021-10-23 SYPHILIS NON-REACTIVE NON-REACTIVE CHLAMYDIA/GC by PCR URINE 2021-08-18 C.trach by PCR NOT DETECTED NOT DETECTED N. gonorrhoeae PCR NOT DETECTED NOT DETEC GIA USR The patient should n ot have urinated for at least 1 hour prior to specimen collection. Female patients should not cleanse the labial area prior to collecting the specimen. Male patients should not cleanse the tip of the penis prior to collecting the specimen. COVID 19 (POS) SOFIA2 SARS Ag 2021-08-17 Flu A n/a Flu B n/a SARS negative Test (Rapid) Urine 2021-03-03 Result negative Control Passed Pap Lb, Ct-Ng, rfx HPV all 2021-03-03 . Chlamydia, Nuc. Acid Amp Gonococcus, Nuc. Acid Amp Note: . Clinical history: DIAGNOSIS: Specimen adequacy: Additional comment: Recommendation: Performed by: Electronically signed by: Test ordered: Maturation index: Amended report: Addendum: QC reviewed by: Cytology history: Special procedure: QA comment: Diagnosis provided by: Source: Pathologist provided ICD9: Clinician provided ICD9: Interpretation LBP CPT Code Automation REASON FOR VISIT COMMUNITY LIVING SPECIALIST 6 month pap, COMMUNITY LIVING SPECIALIST 6 month pap, ENT- 6 mo tube check, BMP 04/16/22 APPT , COMMUNITY LIVING SPECIALIST well woman & pap, no libido, COMMUNITY LIVING SPECIALIST HPV #3, [facility] 2 MO FU, 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 Nuva Ring-hasnot started using the nuvaring yet. has like dark red old blood shedding that is happening once a month now. doesn't have cycles since Mirena placed, PC - 2mo f/u, Patient started therapyon 11/26/21, she is seeing Shelia Mcneill, ENT - Ear pressure, pre-load, [facility] - JUSTYN. 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 HPV vaccine, COMMUNITY LIVING SPECIALIST 4 week follow up Mirena placed 03/03, NO PA REQ. 03/31/2021 Gardasil 9 vaccine, COMMUNITY LIVING SPECIALIST IUD insert Mirena?, IUD insert 03/03/21 , COMMUNITY LIVING SPECIALIST confirmation-started bleeding heavier on Wednesday and was seen at a walk in clinic. had a positive UPT and had blood work done and her hcg levels were low-HW, stopped bleeding tod ay, negative UPT in the office, FYI-early spotting Insurance Providers Health Insurance Type Health Plan Insurance Address Health Plan Insurance Phone Health Plan Insurance Name Health Plan Coverage Dates Member ID Patient Relationship to Subscriber Patient Address Patient Phone Patient Name Patient Date of Subscriber ID Subscriber Name Subscriber Date of Group No [address] [facility] [id number] self Nasrin Mejía [id number] [place] [address] [facility] [id number] [place] self Nasrin Mejía [id number] [facility] MEDICAID [address] [facility] [address] [facility] MEDICAID self Nasrin Mejía [id number]
--- OUTSIDE RECORDS SUMMARY | 2022-10-06 08:18 | XMS_ITS ---
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 Name Role Phone VargasJamina Primary Care Physician [phone] Encounter [facility] [id number] Date(s): 10/01/20 - 10/16/[address] [place] [phone] [facility] Discharge Disposition: Routine to Home Attending Physician: Arnav Carrasco DO Admitting Physician: Arnav Carrasco DO Referring Physician: Arnav Carrasco DO Reason for Visit SINUSOSCOPY Vital Signs Most recent to oldest [Reference Range]: 1 Temperature (Route Not Specified) [36.5- 37.3 DegC] 36 DegC *LOW* (10/16/20 8:44 AM) Peripheral Pulse Rate [60-100 bpm] 68 bp m (10/16/20 9:45 AM) Respiratory Rate [12-20 br/min] 22 br/mi n *HI* (10/16/20 9:45 AM) Blood Pressure [90-135/60-80 mmHg] 150/8 1mmHg *HI* (10/16/20 9:45 AM) Height 157.47 cm (10/16/20 6:55 AM) Weight 65 kg (10/16/20 6:55 AM) Problem List Condition Effective Dates Status Health Status Inform ant Asthma(Confirmed) Active Ear fullness(Confirmed) Active Hearing loss in left ear(Confirmed) Active Murmur(Confirmed) Active Sensitive skin(Confirmed) Active Lower back pain(Confirmed) Active Cervical spine pain(Confirmed) Active Allergies, Adverse Reactions, Alerts Substance Reaction Severity Status Adhesive Bandage 1 local skin irritation. Active 1very sensitive skin in general. Medications albuterol Status: Ordered Start Date: 10/09/20 ciprofloxacin-dexamethasone otic (Ciprodex 0.3%-0.1% otic suspension) Status: Ordered Start Date: 10/16/20 Stop Date: 10/21/20 4 Drops Both ears 2 Times a Day for 5 Days. Refills: 0. Ordering provider: Arnav Carrasco DO montelukast (montelukast 10 mg oral tablet) Status: Ordered Start Date: 10/09/20 1 Tabs By Mouth Every PM. naproxen (Aleve 220 mg oral tablet) Status: Ordered Start Date: 10/09/20 2 Tabs 1-2 times a day. Results Most recent to oldest [Reference Range]: 1 U HCG QL Negative 1 (10/16/20 6:56 AM) 1Result Comment: Date Received: 09/25/2020 Kit Lot No.: [id number] Exp. Date: 06/22/2022 Internal QC: OK Procedures Procedure Date Related Diagnosis Body Site Status bilat. Ing hernia repair Completed ear tubes placed during childhood Completed EGD -2013 Completed Social History Social History Type Response Tobacco Denies Smoking Status Never smoker Hospital Discharge Instructions Patient Education After Tympanostomy (Ear Tubes) Anesthesia: After Your Surgery After Tympanostomy (Ear Tubes) Anesthesia: After Your Surgery
--- NOTE | 2022-10-06 10:51 | ED.GENADUL_ITS ---
Discharge Plan Disposition Patient Disposition: Home Discharge Details Clinical Impression: Shortness of breath Primary Care Provider: Saundra De Paz ED Provider: Stephen Arriola Home Meds and New Rx's Prescriptions: New prednisone 20 mg tablet 60 mg PO DAILY 4 Days Qty: 12 0RF Rx Instructions: days 11-21 of therapy No Action prednisone 10 mg tablet See Rx Instructions PO .COMPLEX Rx Instructions: orally; 4tabsfor 3 days, 3tabs for 3 days, 2 tabs for 3 days, 1 tab for 3 days. Stop etonogestrel-ethinyl estradiol [NuvaRing] 0.12-0.015 mg/24 hr ring 1 vag ring vaginal DIRECTED Rx Instructions: leave in place for 3 weeks of a 4-week cycle fluticasone propionate [Flonase Allergy Relief] 50 mcg/actuation spray,suspension 1 spray intranasal BID Rx Instructions: administer into each nostril montelukast [Singulair] 10 mg Tablet 10 mg PO DAILY albuterol sulfate 90 mcg/actuation Hfa Aerosol Inhaler 2 puff INHALATION 6XD famotidine 20 mg tablet Patient Comments: TAKE ONE TABLET BY MOUTH AT BEDTIME fluticasone propionate 50 mcg/actuation spray,suspension INTRANASAL Discharge Instructions Instructions: Dyspnea (ED) Additional Instructions: You are seen in the emergency department for your shortness of breath. Your x- ray showed no sign of a pneumonia. Your blood work showed no sign of a blood clot in your lungs nor any damage to your heart. As we discussed if you develop fever or worsening shortness of breath please return to the emergency department. Otherwise please take these steroids beginning tomorrow for the next 4 days. Please follow-up with your primary montessori teacher as previously scheduled next week and return to the emergency department if you have any concerns. Discharge Data Discharge Date/Time-TO BE ENTERED AT DEPARTURE: 10/06/22 12:42 Discharge Physician: Stephen Arriola Medical Decision Making This is a normothermic and mildly tachycardic 37-year-old female with a history of reactive airway disease dementia department in the setting of shortness of breath concerning for exacerbation of her reactive airway disease versus PE and less likely ACS. Patient is not PERC negative secondary to her heart rate so we will obtain a D-dimer. Given her chest pain will obtain ECG and troponin and if her single high-sensitivity troponin is negative will be reassured against ACS based on her lack of risk factors. No fevers to suggest pneumonia however we will obtain an x-ray given several weeks of cough. Patient does have outpatient pulmonary follow-up and if her ED evaluation is reassuring will discharge on a short burst of prednisone. 2 PM D-dimer was negative as well as troponin. Patient's heart rate normalized without intervention in the ED. I have advised an empiric trial of outpatient expectant management on prednisone with pulmonology follow-up and return to the ED if she develops any worsening shortness of breath fevers or more productive cough. Her ECG is nonischemic. HPI General Date/Time Provider Initiated Documentation: 10/06/22 10:47 . HPI Narrative: This is a 37-year-old female with a history of reactive airway disease on outpatient steroid inhaler presenting to the emergency department in setting of 3 weeks of cough and chest congestion. She reports that she had allergy [place] [facility] [place] told to hold off of all of her medications. Subsequently she has felt more short of breath. She has taken multiple negative COVID test at home. 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 She has never been intubated in the past in the setting of her asthma. She has never had a PE nor DVT. She has an IUD in place but is not on oral contraceptives. She also notes that she has had reflux in the past and is concerned that there is possibility of reflux causing her persistent cough. Her cough is nonproductive. She does not have a sore throat. Related Data Home Medications Medication Instructions Recorded Confirmed albuterol sulfate 90 mcg/actuation 2 puff inhalation 6XD 11/01/21 10/06/22 aerosol inhaler montelukast 10 mg tablet 10 mg PO DAILY 11/01/21 10/06/22 (Singulair) etonogestrel 0.12 mg-ethinyl 1 vag ring vaginal DIRECTED 07/27/22 10/06/22 estradiol 0.015 mg/24 hr vaginal ring (NuvaRing) fluticasone propionate 50 1 spray intranasal BID 07/27/22 10/06/22 mcg/actuation nasal spray,suspension (Flonase Allergy Relief) prednisone 10 mg tablet See Rx Instructions PO .COMPLEX 07/27/22 famotidine 20 mg tablet mg 10/06/22 10/06/22 fluticasone propionate 50 intranasal 10/06/22 10/06/22 mcg/actuation nasal spray,suspension prednisone 20 mg tablet 60 mg PO DAILY 4 days #12 tabs 10/06/22 Previous Rx's Medication Instructions Recorded prednisone 20 mg tablet 60 mg PO DAILY 4 days #12 tabs 10/06/22 Allergies Allergy/AdvReac Type Severity Reaction Status Date / Time No Known Allergies Allergy Unverified 10/06/22 08:12 General Stated Complaint: RespSymp JACOB: 3 PFSH All Active Problems (Updated 10/06/22 @ 12:42 by Stephen Arriola MD) Shortness of breath (Acute) Viral URI (Acute) Chronic rhinitis (Acute) Asthma exacerbation (Acute) Social History Smoking/Tobacco Use Status: Never Smoking risk assessment performed?: Yes Alcohol Intake: never Drug use: Never Substance use type: does not use Do you feel safe at home: Yes Do you feel safe in your relationship?: Yes Exam Narrative Exam Narrative: General: Well-appearing in no acute distress speaking in complete sentences. Head: Normocephalic, atraumatic Ear, nose, mouth, throat: Grossly normal inspection. Normal voice, handling secretions normally. No significant posterior oropharynx erythema. Neck: Trachea midline. Cardiovascular: Well-perfused distal extremities. Respiratory: Nonlabored respiration. Mildly prolonged expiratory phase. Gastrointestinal: Nondistended abdomen. Musculoskeletal: No edema. Moving all 4 extremities spontaneously. Skin: Normal for age and race, grossly normal temperature and turgor. No acute rash. Neurologic: Alert and appropriate, no apparent acute deficits. Psychiatric: Mood and manner are appropriate. Grooming and personal hygiene are appropriate. Course Vital Signs Vital signs: Vital Signs Temperature 36.9 C 10/06/22 08:06 Pulse 107 H 10/06/22 08:06 Respiratory Rate 18 10/06/22 08:06 Blood Pressure 142/99 H 10/06/22 08:06 Pulse Oximetry 97 10/06/22 08:06 Temperature 36.9 C 10/06/22 08:06 Temperature Source Tympanic 10/06/22 08:06 Pulse 107 H 10/06/22 08:06 Respiratory Rate 18 10/06/22 08:06 Respiratory Effort Non-Labored, Short of Breath 10/06/22 08:13 Blood Pressure 142/99 H 10/06/22 08:06 Blood Pressure Position Sitting 10/06/22 08:06 Pulse Oximetry 97 10/06/22 08:06 Oxygen Delivery Method Room Air 10/06/22 08:06 Oxygen Flow Rate 0 10/06/22 08:06 Pain Level 2 10/06/22 08:06 Comment upper back pain 10/06/22 08:06
[2022-10-06 10:52] VITALS: BP 129/85; PULSE 111; RESP 16; TEMP 37.2; O2SAT 93
--- NOTE | 2022-10-06 11:00 | RT.EKG_ITS ---
APPROVED REPORT Exam: Resting ECG Reason for Exam: Chest pain Patient Location: E HR:97 bpm ECG Measurements Heart Rate 97 AXIS OK 167 P 38 QRSd 74 QRS 23 QT 327 T 32 QTc 415 Conclusion Sinus rhythm...normal P axis, V-rate 60- 99 No complex normal sinus rhythm and rate 97. Normal axis. Intervals within normal limits. No acute injury pattern. No prior for comparison I have reviewed and interpreted ECG and agree with software generated interpretation.
--- NOTE | 2022-10-06 11:00 | DI.RAD_ITS ---
Exam(s) XR CHEST 2V PA LATERAL EXAM: XR CHEST 2V PA LATERAL CLINICAL HISTORY: Shortness of breath. TECHNIQUE: 2D digital imaging was performed. COMPARISON: No exams were available for comparison FINDINGS: 2 views: Heart size is normal. The mediastinum is not widened. Lungs are clear. No infiltrates nor pleural effusions. IMPRESSION: No acute pulmonary findings. DATA REPOSITORY: RADIATION DOSE DELIVERED:
[2022-10-06 11:54] LABS: Abs Immature Grans 0.02 10^3/uL (0.0-0.06); Absolute Basophil Count 0.09 10^3/uL (0.0-0.2); Absolute Eosinophil Count 0.46 10^3/uL (0.0-0.7); Absolute Lymphocyte Count 1.15 10^3/uL (1.2-3.4); Absolute Monocyte Count 0.64 10^3/uL (0.1-0.8); Absolute Neutrophil Count 5.32 10^3/uL (1.2-6.7); Basophils % 1.2; HGB 14.2 g/dL (11.2-15.7); Immature Grans % 0.3; MCH 29.3 pg (27.0-33.0); MCV 89 fL (80-95); MPV 9.2 fL (8.0-11.0); Monocytes % 8.3; Neutrophils % 69.2; Platelet Count 304 10^3/uL (130-400); RBC 4.84 10^6/uL (3.93-5.22); RDW 11.7 % (11.7-14.6); WBC 7.68 10^3/uL (4.4-10.8)
[2022-10-06 12:11] LABS: BUN 9 mg/dL (7-18); Calcium 9.5 mg/dL (8.5-10.1); Chloride 102 mmol/L (98-107); Estimated GFR 74.88 (mL/min/1.73m2); Glucose 94 mg/dL (74-106); Potassium 3.8 mmol/L (3.5-5.1); Sodium 138 mmol/L (136-145)
[2022-10-06 12:13] LABS: Troponin I < 50 ng/L (<or=60)
[2022-10-06 12:27] LABS: Bilirubin Negative (Negative); Blood Negative (Negative); Clarity Clear (Clear); Glucose Negative (Negative); Ketones Negative (Negative); Leukocyte Esterase Trace (Negative); Nitrite Negative (Negative); Specific Gravity 1.015 (1.005-1.025); Urobilinogen 0.2 EU/dL (Up TO 0.2); pH 7.5 (5-8)
[2022-10-06 12:28] LABS: D-Dimer 147 ng/mlFEU (<500); HCG Qual (Serum) Negative
[2022-10-06 12:36] LABS: Bacteria Many HPF (Negative); Epithelial Cells Many HPF (Negative)
[2022-10-06 12:37] LABS: C & S Indicated? No/Sq. Contamination; Casts Negative LPF (Negative); Crystals Moderate Amorphous HPF (Negative); Mucus Negative (Negative)
[2022-10-06 12:55] VITALS: BP 119/86; PULSE 95; RESP 16; TEMP 36.9; O2SAT 94
== END 2022-10-06 12:43 | disposition home or self-care (01) ==
PROVIDERS: Emergency Provider Emergency Medicine; PCP Family Medicine
DX: R06.02 Shortness of breath (principal); J45.909 Unspecified asthma, uncomplicated; R06.89 Other abnormalities of breathing; F03.90 Unspecified dementia, unspecified severity, without behavioral disturbance, psychotic disturbance, mood disturbance, and anxiety; Z79.51 Long term (current) use of inhaled steroids
CPT/HCPCS: 36415; 80048; 93005; 99284; 71046; 81003; 81015; 84484; 84703; 85025; 85379; 93010

== ENCOUNTER 2024-10-23 16:19 | Emergency (ER) | payer MEDICAID, SELFPAY ==
[2024-10-23 16:24] VITALS: BP 163/100; PULSE 94; RESP 15; TEMP 36.5; O2SAT 97
--- NOTE | 2024-10-23 18:33 | W.ED.GENAD ---
Discharge Plan Disposition Patient Disposition: Home Discharge Details Clinical Impression: Right-sided chest pain, Muscle spasm, Arm paresthesia, right Primary Care Provider: Toby Henderson ED Provider: Poornima Walker Home Meds and New Rx's Prescriptions: No Action fluticasone propion-salmeterol [Advair HFA] 230-21 mcg/actuation HFA aerosol inhaler 2 puff inhalation BID albuterol sulfate 90 mcg/actuation HFA aerosol inhaler 2 puff inhalation Q6H PRN fluticasone propionate [Flonase Allergy Relief] 50 mcg/actuation spray,suspension 1 spray intranasal BID Rx Instructions: administer into each nostril montelukast [Singulair] 10 mg Tablet 10 mg PO DAILY Discharge Instructions Additional Instructions: Please call diagnostic imaging first thing in the morning to schedule your chest x-ray and ultrasound. I gave you an additional outpatient order form in case the ones from [facility] were not received. Call your primary care provider's office first thing in the morning to schedule follow-up appointment for further evaluation/management. You may continue to use lidocaine patches, heat/ice (not to be used over lidocaine patches), muscle rub such as Aspercreme or Voltaren gel, and gentle stretching. Return to emergency care if you develop new chest pains, difficulty breathing, persistent numbness in your arm, swelling or color change to your arm, or if you are very worried and need to be rechecked again immediately. Discharge Data Discharge Date/Time-TO BE ENTERED AT DEPARTURE: 10/23/24 22:01 HPI General Date/Time Provider Initiated Documentation: 10/23/24 16:22. HPI Narrative: Lakia is a 39year old female who presents to the emergency department today for evaluation of R sided chest pain with numbness/tingling down R arm that is positional. It started 4 days ago after playing a ball game with her kids, she noticed a enlarged vein in the right lateral chest wall that has since extended down the rib cage. She was seen by urgent care today, went in for chest x-ray and had ultrasound ordered. While in x-ray she started experiencing positional arm pain/numbness/tingling that comes and goes, arm is most comfortable when is overhead. No color change or coolness noted to arm. She also has a muscle spasm to her left upper back. She did just recently travel back from [place] by car. She is not on OCPs, has no known history of malignancy, blood clots, recent surgery. She is 8 months status post breast reduction. Denies fever/chills, shortness of breath, cough, nausea/vomiting, abdominal pain, recent illness. Past medical history is significant for asthma, well controlled. She has also had procedures such as injections in her neck for nerve problems. Physical exam remarkable for tender mass overlying right lateral rib cage, no overlying abrasion/lacerations or ecchymosis. Easy work of breathing, lung sounds clear bilaterally. Normal heart sounds. Distal pulses intact bilaterally to upper extremities. No peripheral edema noted or color change. 5 out of 5 muscle strength upper extremities. No calf redness/swelling/tenderness. Abdomen is soft, nondistended, nontender palpation. Painless range of motion of neck. Spurling test negative. She does have a muscle spasm/knot to her R trapezius. D/dx includes but is not limited to: PE, superficial thrombophlebitis, enlarged lymph nodes, muscle spasms, cervical radiculopathy, nerve impingement. History and presentation not consistent with pneumonia or other acute bacterial process at this time. I independently interpreted the following tests: CBC, BMP, and D-dimer all unremarkable. While in the emergency department, Lakia received a lidocaine patch to her right trapezius with good improvement of muscle spasm and pain/numbness to arm. Overall emergency department workup reassuring. Unclear etiology of pain to arm and palpable cord to right lateral rib cage, though it is very reassuring that arm symptoms resolved with lidocaine patch, likely muscle spasm. Patient does have outpatient chest x-ray and ultrasound already ordered by [facility]. I did offer her opportunity to have chest x-ray performed this evening, as we do not have ultrasound available. She declines at this time, will follow-up with diagnostic imaging to have imaging performed on outpatient basis. Reviewed discharge instructions with patient, including follow-up instructions, symptomatic management, and red flags indicating need for return to emergency care. Recommend close follow-up with PCP Related Data Home Medications ?Medication ?Instructions ?Recorded ?Confirmed montelukast 10 mg tablet 10 mg PO DAILY 11/01/21 10/23/24 (Singulair) fluticasone propionate 50 1 spray intranasal BID 07/27/22 10/23/24 mcg/actuation nasal spray,suspension (Flonase Allergy Relief) albuterol sulfate 90 mcg/actuation 2 puff inhalation Q6H PRN 10/23/24 10/23/24 aerosol inhaler fluticasone propionate 230 2 puff inhalation BID 10/23/24 10/23/24 mcg-salmeterol 21 mcg/actuation HFA inhaler (Advair HFA) Allergies Allergy/AdvReac Type Severity Reaction Status Date / Time levofloxacin (From Levaquin) AdvReac Intermediate hallucinati Verified 10/23/24 16:31 on General Stated Complaint: Nk/Back Pain JACOB: 3 Review of Systems Narrative: See HPI Exam Const General: cooperative, healthy appearing, comfortable, no acute distress, well developed and well groomed Nutritional Appearance: average body habitus and well nourished Orientation: alert and oriented x3 Neck Neck: normal visual inspection, full ROM and no lymphadenopathy Chest Chest: normal inspection of the chest, no crepitus and tenderness (Palpable tender cord noted to right lateral rib cage) Resp Effort & Inspection: normal respiratory effort and able to speak in complete sentences Auscultation: clear to auscultation bilaterally Cardio Rate: regular rate Rhythm: regular rhythm Pulses: normal peripheral pulses GI Inspection: normal to inspection Palpation: soft, not firm and no guarding Back/Spine/Pelvis Cervical Spine: normal cervical lordosis, cervical ROM normal and other (Negative Spurling sign) Thoracic/Lumbar Spine: thoracic and lumbar spine normal to inspection Other: Tenderness/muscle spasm noted to right trapezius Skin General skin exam: no rashes or lesions noted Trauma: no lacerations or abrasions Neuro General: patient alert, patient oriented x3, tone normal and moves all extremities Cognition: normal cognition Speech: speech normal Motor: muscle tone normal throughout and strength 5/5 throughout Sensory Exam: no sensory deficits noted Extrem General: normal to inspection, full ROM, capillary refill normal, no joint enlargement, no pedal edema, no calf tenderness and no edema Course Vital Signs Vital signs: Vital Signs Temperature 36.5 C 10/23/24 16:24 Pulse 94 H 10/23/24 16:24 Respiratory Rate 15 10/23/24 16:24 Blood Pressure 163/100 H 10/23/24 16:24 Pulse Oximetry 97 10/23/24 16:24 Temperature 36.5 C 10/23/24 16:24 Pulse 94 H 10/23/24 16:24 Respiratory Rate 15 10/23/24 16:24 Blood Pressure 163/100 H 10/23/24 16:24 Blood Pressure Position Sitting 10/23/24 16:24 Pulse Oximetry 97 10/23/24 16:24 Oxygen Delivery Method Room Air 10/23/24 16:24 Oxygen Flow Rate 0 10/23/24 16:24 Pain Level 8 10/23/24 18:09 Medical Decision Making Quality:SDOH Health Related Social Needs: No Data to Display PFSH All Active Problems (Updated 10/23/24 @ 21:45 by Poornima Gonzalez) Arm paresthesia, right (Acute) Muscle spasm (Acute) Right-sided chest pain (Acute) Asthma (Chronic) Chronic rhinitis (Acute) Medical History Viral URI Asthma exacerbation Social History Smoking/Tobacco Use Status: Never Smoking risk assessment performed?: Yes Alcohol Intake: never Drug use: Never Substance use type: does not use Do you feel safe at home: Yes Do you feel safe in your relationship?: Yes
[2024-10-23] MEDS: Lidocaine 5% Patch 1 PATCH TP (19:49)
[2024-10-23 20:12] LABS: Abs Immature Grans 0.01 10^3/uL (0.0-0.06); Absolute Basophil Count 0.08 10^3/uL (0.0-0.2); Absolute Eosinophil Count 0.33 10^3/uL (0.0-0.7); Absolute Lymphocyte Count 2.75 10^3/uL (1.2-3.4); Absolute Monocyte Count 0.61 10^3/uL (0.1-0.8); Absolute Neutrophil Count 5.19 10^3/uL (1.2-6.7); Basophils % 0.9 %; Eosinophils % 3.7 %; HCT 45.5 % (36.0-46.0); Immature Grans % 0.1 %; Lymphocytes % 30.7 %; MCH 30.7 pg (27.0-33.0); MCV 93 fL (80-95); Monocytes % 6.8 %; Neutrophils % 57.8 %; Platelet Count 327 10^3/uL (130-400); RBC 4.88 10^6/uL (3.93-5.22); RDW-SD 41.4 fL; WBC 8.97 10^3/uL (4.4-10.8)
[2024-10-23 20:25] LABS: Anion Gap 9.6 mmol/L (3-11); BUN 11 mg/dL (7-18); CO2 30.4 mmol/L (21.0-32.0); CREATININE 0.9 mg/dL (0.55-1.02); Calcium 9.2 mg/dL (8.5-10.1); Chloride 105 mmol/L (98-107); Estimated GFR 83.92 (mL/min/1.73m2); Glucose 61 mg/dL (74-106); Potassium 3.6 mmol/L (3.5-5.1); Sodium 145 mmol/L (136-145)
[2024-10-23 20:38] LABS: D-Dimer 229 ng/mlFEU (<500)
[2024-10-23 22:00] VITALS: BP 140/95; PULSE 83; RESP 18; O2SAT 98
--- NOTE | 2024-10-24 00:42 | NUR.NOTE ---
DI requisition for cxr and ultrasound faxed to DI scheduling.Nursing Note:
== END 2024-10-23 22:01 | disposition home or self-care (01) ==
PROVIDERS: Emergency Provider Nurse Practitioner Family; PCP Family Medicine
DX: R07.9 Chest pain, unspecified (principal); M62.838 Other muscle spasm; R20.2 Paresthesia of skin
CPT/HCPCS: 36415; 80048; 81025; 99283; 85025; 85379

== ENCOUNTER 2024-10-24 12:09 | Outpatient (CLI) | payer MEDICAID, SELFPAY ==
--- NOTE | 2024-10-24 | DI.US_ITS ---
Exam(s) US SOFT TISS ABD WALL/LOW BACK EXAM: US SOFT TISS ABD WALL/LOW BACK CLINICAL HISTORY: Rt lateral chest wall pain w/palpable mass, ? vein. TECHNIQUE: Ultrasound was performed using standard protocol. COMPARISON: No exams were available for comparison FINDINGS: Sonographic assessment utilizing grayscale and color Doppler imaging was performed and targeted to th e area of clinical concern. This is in the right flank There is no evidence of significant thrombosed vein. The main finding here is some increased echogenicity within the subcutaneous fat layer which extends along the area of clinical concern. No abnormal fluid collection. There is no distinct mass evident . . IMPRESSION: Subtle hyper echogenicity of the subcutaneous fat layer along the area of clinical concern. No abnor mal distinct mass nor fluid collection nor obvious thrombosed vein. If symptoms persist I would recommend another modality such as CT or MRI. DATA REPOSITORY:
--- NOTE | 2024-10-24 | DI.RAD_ITS ---
Exam(s) XR RIBS RT W PA LAT CHEST EXAM: XR RIBS RT W PA LAT CHEST CLINICAL HISTORY: Rt lateral chest wall pain w/palpable mass, ? vein TECHNIQUE: 2D digital imaging was performed. COMPARISON: CR XR CHEST 2V PA LATERAL from 10/06/2022 FINDINGS: Total 5 views RIBS 3 VIEWS-right There are no obvious acute rib fractures evident. No lytic rib lesions identified. Incidentally noted are surgical clips in the right breast. CXR- 2 VIEWS: No lung contusion or pneumothorax. There is no pleural effusion evident. Heart size is normal and there is no significant mediastinal widening. Pectus excavatum noted. IMPRESSION: 1. No obvious rib fractures evident. Also no significant rib lesions. 2. No ipsilateral lung nor pleural abnormality evident. No pneumothorax. Lungs are clear. Surgical clips noted in the right breast. DATA REPOSITORY: RADIATION DOSE DELIVERED:
--- NOTE | 2024-10-24 15:47 | W.ED.FU ---
Follow Up Plan: US soft tissue report received, there is a subtle hyperechogenicity of the subcutaneous fat layer along the right lateral rib cage. I was unable to reach the patient by phone (message said phone was disconnected), I did call her PCPs office and confirmed that she has a follow-up appointment on Wednesday. I confirmed to the fax number with library media assistant Talia, who requested that the report be faxed to ensure it is in the record. Diagnostic imaging confirmed that they will fax the interpretation of the lab report.
== END 2024-10-24 12:29 ==
LOC: DI 12:11
PROVIDERS: PCP Family Medicine; Visit Provider Nurse Practitioner Family
DX: R07.9 Chest pain, unspecified (principal); L98.8 Other specified disorders of the skin and subcutaneous tissue
CPT/HCPCS: 71046; 71100; 76705

== ENCOUNTER 2025-04-20 19:13 | Emergency (ER) | payer MEDICAID, SELFPAY ==
[2025-04-20 19:24] VITALS: BP 133/85; PULSE 88; RESP 20; TEMP 36.8; O2SAT 97
--- NOTE | 2025-04-20 19:27 | W.ED.GENAD ---
Discharge Plan Disposition Patient Disposition: Home Condition: Improving Discharge Details Clinical Impression: Headache around the eyes Primary Care Provider: Toby Henderson ED Provider: Felipe Chandler Home Meds and New Rx's Prescriptions: New prochlorperazine maleate [Compazine] 10 mg tablet 10 mg PO Q8H PRN (Reason: headache) Qty: 15 0RF Continued fluticasone propion-salmeterol [Advair HFA] 230-21 mcg/actuation HFA aerosol inhaler 2 puff inhalation BID albuterol sulfate 90 mcg/actuation HFA aerosol inhaler 2 puff inhalation Q6H PRN fluticasone propionate [Flonase Allergy Relief] 50 mcg/actuation spray,suspension 1 spray intranasal BID Rx Instructions: administer into each nostril montelukast [Singulair] 10 mg Tablet 10 mg PO DAILY lisinopril 2.5 mg tablet 2.5 mg PO DAILY Patient Comments: TAKE ONE TABLET BY MOUTH EVERY DAY pantoprazole 20 mg tablet,delayed release (DR/EC) 20 mg PO DAILY Patient Comments: TAKE ONE TABLET BY MOUTH EVERY DAY Discharge Instructions Additional Instructions: You were seen for persistent frontal headache with eye pain. A CT scan of your head shows some chronic ethmoid sinusitis otherwise unremarkable. Your symptoms improved with prochlorperazine which is a medication we typically use for migraines. Since this seemed to help to some degree I will prescribe oral prochlorperazine for use at home. As we discussed be sure to keep your Eye and ENT appointment. Follow-up with primary care and consider neurology referral. Return to ED for any significant visual change, neurologic change, other concerns. HPI General Mode of arrival: ambulatory. Date/Time Provider Initiated Documentation: 04/20/25 19:27. Limitations to Documentation: no limitations. Information obtained by: patient and RN notes reviewed. HPI Narrative: Patient presents to ED complaint of worsening eye pain and frontal headache. Patient reports ongoing problem for a couple of years. She has always had puffiness around her eyes. She reports postnasal drip. She has significant light sensitivity and at times sound sensitivity. She is followed by [facility], primary care, ENT. The last few days the pain has become much worse. She reports visual changes but that eye exams are always normal. She has had rheumatology/autoimmune workup which has always been negative. She has not been approved to be seen by rheumatology because of insurance. She took Aleve prior to coming in because the pain is so bad. She does not have any neurologic change otherwise. She constantly has to squint to be able to see well. She does have an eye appointment on Wednesday after the holiday weekend. Related Data Home Medications ?Medication ?Instructions ?Recorded ?Confirmed montelukast 10 mg tablet 10 mg PO DAILY 11/01/21 04/20/25 (Singulair) fluticasone propionate 50 1 spray intranasal BID 07/27/22 04/20/25 mcg/actuation nasal spray,suspension (Flonase Allergy Relief) albuterol sulfate 90 mcg/actuation 2 puff inhalation Q6H PRN 10/23/24 04/20/25 aerosol inhaler fluticasone propionate 230 2 puff inhalation BID 10/23/24 04/20/25 mcg-salmeterol 21 mcg/actuation HFA inhaler (Advair HFA) lisinopril 2.5 mg tablet 2.5 mg PO DAILY 04/20/25 04/20/25 pantoprazole 20 mg tablet,delayed 20 mg PO DAILY 04/20/25 04/20/25 release prochlorperazine maleate 10 mg 10 mg PO Q8H PRN headache #15 tabs 04/20/25 tablet (Compazine) Previous Rx's ?Medication ?Instructions ?Recorded prochlorperazine maleate 10 mg 10 mg PO Q8H PRN headache #15 tabs 04/20/25 tablet (Compazine) Allergies Allergy/AdvReac Type Severity Reaction Status Date / Time levofloxacin (From Levaquin) AdvReac Intermediate hallucinati Verified 04/20/25 19:23 on General JACOB: 3 Exam Narrative Exam Narrative: Const: WDWN female in NAD. VS per triage. HEENT: NC/AT. Normal facial exam. No temporal tenderness. Eyes: PERRL and EOMI. Conjunctiva clear. Unable to visualize fundi due to light sensitivity/small pupils. Neck: Supple. Trachea midline. Lungs: Normal respiratory effort. Neuro: A+O x 3. Normal speech, mentation, gait. Cranial nerves II - XII grossly intact. No gross motor or sensory deficit. Skin: No rash. Medical Decision Making Patient presenting to ED with worsening of her frontal headache and eye pain which she describes as being behind her eyes, worse with light and movement of eyes. She reports multiple workups and is followed by optometry, ENT, primary care. She has had negative rheumatology workup. She does not have any temporal tenderness and is not of an age to consider temporal arteritis. Given negative previous rheumatology workup do not feel labs are necessary. Her eye exam seems normal so I am not able to see her fundi. She does have an appointment to see optometry again on Wednesday. She has significant light sensitivity, sound sensitivity, frontal headache, report of visual change. She is able to function most of the time including driving. Seems very unlikely to be migraine given the duration of symptoms. She has never had CT of the head or MRI of the brain. I do think it is reasonable to obtain CT head tonight. Will try a dose of IM prochlorperazine to see if there is any change in her pain. Patient reports significant improvement after IM prochlorperazine. Still has pain but the pressure sensation has really let up. CT of the head shows some chronic bilateral ethmoid sinus disease but otherwise nothing acute. I think the patient is safe for discharge home. She has follow-up with optometry and ENT. Should discuss possible referral to neurology with her PCP. Return precautions provided. Imaging Data Radiologic Study: Imaging: CT Scan Radiologist's impression: IMPRESSION: 1. No acute intracranial abnormalities noted. 2. Chronic bilateral ethmoid sinus disease. Thank you for allowing us to participate in the care of your patient. Dictated and Authenticated by: Abdon Rosado MD [facility] All Active Problems (Updated 04/20/25 @ 21:06 by Felipe Chandler MD) Headache around the eyes (Acute) Chronic rhinitis (Acute) Medical History Asthma Surgical History Status post breast reduction Social History Smoking/Tobacco Use Status: Never Smoking risk assessment performed?: Yes Alcohol Intake: never Drug use: Never Substance use type: does not use Housing: apartment Do you feel safe at home: Yes Do you feel safe in your relationship?: Yes
[2025-04-20 19:29] VITALS: BP 133/85; PULSE 88; RESP 20; TEMP 36.8; O2SAT 97
--- NOTE | 2025-04-20 19:45 | DI.CT_ITS ---
Exam(s) CT HEAD WO EXAM: CT HEAD WO CLINICAL HISTORY: worsening persistent headache; no previous imaging. TECHNIQUE: Imaging Protocol: Axial computed tomography images with coronal and sagittal reformatted images were created and reviewed COMPARISON: No exams were available for comparison FINDINGS: Ventricles and Extra axial spaces: Normal in size and morphology for the patient's age. Hemorrhage: None. Cerebral parenchyma: Normal. Midline shift: None. Brainstem/Cerebellum: Normal. Calvarium: Normal. Visualized Paranasal sinuses/Mastoids: There is opacification of several ethmoid air cells bilaterally. The remaining visualized paranasal sinuses are clear. The mastoid air cells are clear. Soft Tissues: Unremarkable. IMPRESSION: 1. No acute intracranial process. 2. Chronic paranasal sinus disease as described above. 3. The preliminary [facility] report was reviewed. RADIATION DOSE DELIVERED: 857.37mGy.cm Total DLP DATA REPOSITORY: All CT scans at this facility are submitted to the National Radiology Data Registry (NRDR) Dose Index Registry (DIR) with the [employer] ([employer]). RADIATION OPTIMIZATION: All CT scans at this facility use at least one of these dose optimization techniques: automated exposure control; mA and/or kV adjustment per patient size (includes targeted exams where dose is matched to clinical indication); or iterative reconstruction.
[2025-04-20] MEDS: Prochlorperazine 10 MG/2 ML VIAL IM (20:03)
--- NOTE | 2025-04-20 20:48 | DI.[facility]_ITS ---
PROCEDURE INFORMATION: Exam: CT Head Without Contrast Exam date and time: 04/20/2025 8:16 PM Age: 39 years old Clinical indication: Pain; Headache not specified; Worsening persistent headache; No previous imaging TECHNIQUE: Imaging protocol: Computed tomography of the head without contrast. Radiation optimization: All CT scans at this facility use at least one of these dose optimization techniques: automated exposure control; mA and/or kV adjustment per patient size (includes targeted exams where dose is matched to clinical indication); or iterative reconstruction. COMPARISON: No relevant prior studies available. FINDINGS: Brain: Normal. No hemorrhage. Unremarkable white matter. No mass effect. Cerebral ventricles: No ventriculomegaly. Paranasal sinuses: Chronic bilateral ethmoid sinus disease. Mastoid air cells: Visualized mastoid air cells are well aerated. Bones: Unremarkable. No acute fracture. Soft tissues: Unremarkable. IMPRESSION: 1. No acute intracranial abnormalities noted. 2. Chronic bilateral ethmoid sinus disease. Dictated and Authenticated by: Abdon Rosado MD. Orderin Ramesh Wang MD
[2025-04-20 21:34] VITALS: BP 131/84; PULSE 80; RESP 19; TEMP 37; O2SAT 98
== END 2025-04-20 21:38 | disposition home or self-care (01) ==
PROVIDERS: Emergency Provider Emergency Medicine; PCP Family Medicine
DX: R51.9 Headache, unspecified (principal); J32.9 Chronic sinusitis, unspecified
CPT/HCPCS: 96372; 99284; 70450; J0780